=== PATIENT | female | born 1940 | race Caucasian/White ===

== ENCOUNTER 2020-09-09 08:16 | Day surgery (SDC) | payer MEDICARE ==
--- NOTE | 2020-09-03 10:13 | HP ---
DATE OF SURGERY: 09/09/2020 HISTORY OF PRESENT ILLNESS: The patient presented to the office with complaints of a right nipple inversion. She had AVS and MMK procedure before. It is not sure if her last mammogram was okay but she reports that it was okay. Her nipple is symptomatic and she wishes to have something done about it. PAST MEDICAL HISTORY: Diabetes. Hypertension. Gastroesophageal reflux disease. PAST SURGICAL HISTORY: AVS. MMK. ALLERGIES: NKDA. MEDICATIONS: Metformin. Lisinopril. Latanoprost. FAMILY HISTORY: Cancer unspecified type. Diabetes. SOCIAL HISTORY: None. REVIEW OF SYSTEMS: CONSTITUTIONAL: Denies fever or chills. CHEST: Denies shortness of breath. CVS: Denies chest pain. ABDOMEN: Denies abdominal pain, nausea, vomiting, diarrhea, constipation or rectal bleeding. INTEGUMENTARY: Negative. PHYSICAL EXAMINATION: GENERAL: No acute distress. CHEST: Nonlabored. No shortness of breath. CVS: Regular rate and rhythm. ABDOMEN: Soft, nontender to palpation. EXTREMITIES: No edema. NEUROLOGIC: Alert. PSYCHIATRIC: Appropriate. IMPRESSION: Right nipple inversion. PLAN: Right nipple exploration with Dr. Helio Paulson. As dictated by Kalpana Truong NP.
[~2020-09-09 08:16] MED LIST: DIPRIVAN 200 MG/20 ML IV ONE; Decadron 4 MG INJ ONE; Lactated Ringers 1,000 ML IV ONE; SUBLIMAZE 100 MCG/2 ML ONE; Sensorcaine 0.25% 10 ML ONE; Xylocaine-Mpf 2% 5 Ml Vial ONE; Zofran 4 MG/2 ML VIAL ONE
[2020-09-09] MEDS: Lactated Ringers 1,000 ML IV SCH ×2 (08:52→09:25)
[2020-09-09] MEDS ORDERED: CEFAZOLIN 2 GM-D5W BAG** 2 GM/50 ML ML IV SCH (09:00)
[2020-09-09] MEDS ORDERED: CEFAZOLIN 2 GM-D5W BAG** 2 GM/50 ML ML IV ONE (09:23)
[2020-09-09] MEDS ORDERED: SUBLIMAZE 100 MCG/2 ML ONE (12:07)
[2020-09-09 13:20] VITALS: BP 153/85; PULSE 69; O2SAT 93
--- NOTE | 2020-09-10 12:00 | OP ---
SURGERY DATE/TIME: 09/09/2020 1108 PREOPERATIVE DIAGNOSIS: Acutely inverted right nipple. POSTOPERATIVE DIAGNOSIS: Acutely inverted right nipple. PROCEDURE: Excision of retro-areolar breast tissue right nipple and areola. SURGEON: Helio Paulson M.D. ANESTHESIA: General. COMPLICATIONS: None. CONDITION: Stable. INDICATION: An 79 year old who has a normal left nipple and in the last six weeks has developed a dimpled right nipple. There is no absolute mass. On mammogram there was not anything absolute but it is a very new change and is quite concerning. DESCRIPTION OF PROCEDURE: She was taken to surgery. Marked preoperatively. Routine prep and drape. Incision was marked on the right areola located between the 7:00 and 11:00, this was elevated upwards and retro-areolar tissue was taken. It was slightly thickened and inflamed acting for a lady of this age but I did not think that it was absolutely malignant. The nipple was able to be buttressed with 3-0 Vicryl leaving this in the protruded normal position. The areola was reapproximated with 3-0 Vicryl, 4-0 Vicryl and Steri-Strips. The patient tolerated the procedure satisfactorily.
== END 2020-09-09 13:30 | disposition home or self-care (01) ==
LOC: SDC 08:16
PROVIDERS: ATTEND Surgery
DX: C50.911 Malignant neoplasm of unspecified site of right female breast (principal); E11.9 Type 2 diabetes mellitus without complications; I10 Essential (primary) hypertension; K21.9 Gastro-esophageal reflux disease without esophagitis; Z79.899 Other long term (current) drug therapy
CPT/HCPCS: 82962; 88341; 99100; J0690; J1100; J2405; J2704; J3010

== ENCOUNTER 2021-11-28 11:15 | Day surgery (SDC) | payer MEDICARE ==
[~2021-11-28 11:15] MED LIST changes: -DIPRIVAN 200 MG/20 ML IV ONE; -Decadron 4 MG INJ ONE; -Lactated Ringers 1,000 ML IV ONE; -SUBLIMAZE 100 MCG/2 ML ONE; -Sensorcaine 0.25% 10 ML ONE; +XYLOCAINE 1% HCL 20 ML MDV ONE; -Xylocaine-Mpf 2% 5 Ml Vial ONE; -Zofran 4 MG/2 ML VIAL ONE
[2021-11-28] MEDS ORDERED: Lactated Ringers 1,000 ML IV SCH (11:30)
[2021-11-28] MEDS ORDERED: Versed 2 MG/2 ML Injection ONE (15:14)
[2021-11-28] MEDS ORDERED: SUBLIMAZE 100 MCG/2 ML ONE (15:14)
[2021-11-28] MEDS ORDERED: DIPRIVAN 200 MG/20 ML IV ONE (15:14)
[2021-11-28 17:03] VITALS: BP 160/90; PULSE 78; O2SAT 96
--- NOTE | 2021-12-05 15:11 | OP ---
SURGERY DATE/TIME: 11/28/2021 1513 PREOPERATIVE DIAGNOSIS: Undesired port, treatment is complete. POSTOPERATIVE DIAGNOSIS: Undesired port, treatment is complete. PROCEDURE: Port removal. SURGEON: Leandra Paulson M.D. ANESTHESIA: MAC. COMPLICATIONS: None. ESTIMATED BLOOD LOSS: Minimal. SPECIMENS: None. INDICATION: This is a patient who has had breast cancer. She has completed her treatment. She does not need her port anymore. She would like for this to be removed. Risks, benefits, alternatives have been discussed with her in detail. She understands, agrees and wants to proceed. Her H&P and consent were reviewed with her and completed. DESCRIPTION OF PROCEDURE: She was then brought to the OR suite. Anesthesia was induced. She was prepped and draped in the usual sterile fashion. A complete time out performed. I then made an incision immediately over her port scar. The port was carefully dissected free. The stitches were removed completely. Pressure was held. The port was fully removed, checked. Catheter was intact. We held pressure for two minutes. Upon releasing pressure there was no back bleeding. I placed a figure-of-8 Vicryl at the tunnel site. We irrigated. Closed with buried 3-0 Vicryl, running 4-0 subcuticular Monocryl stitch, Steri-Strips and sterile dressing. The patient tolerated the procedure very well. There were no immediate complications. She is going to be following up with me as an outpatient.
== END 2021-11-28 17:05 | disposition home or self-care (01) ==
LOC: SDC 11:15
PROVIDERS: ATTEND Surgery
DX: Z45.2 Encounter for adjustment and management of vascular access device (principal); Z85.3 Personal history of malignant neoplasm of breast; E11.9 Type 2 diabetes mellitus without complications; I10 Essential (primary) hypertension; Z79.899 Other long term (current) drug therapy
CPT/HCPCS: 82947; 82962; 99100; J2250; J2704; J3010

== ENCOUNTER 2023-07-09 10:05 | Emergency (ER) | payer MEDICARE ==
--- NOTE | 2023-07-09 10:15 | ERPHSYRPT ---
- History of Present Illness Time Seen by Provider: 07/09/23 10:15 Source: patient Exam Limitations: no limitations Physician History: This is an 82-year-old white female patient of Dr. Gillis who has a history of hypertension, diabetes, glaucoma and gastroesophageal reflux disease and noticed in the last few days her mind seemed cloudy and off. She took her blood pres sure several different times over the weekend and there were times where it was very high. She was seen in the outpatient clinic and they increased her lisinopril. Despite this change in the last couple of days, her blood pressure was high and she had an odd headache. She felt a brief left cheek numbness but that completely resolved prior to arrival. She arrived to the emergency department with no vision changes, no chest pain, no shortness of breath but she did have a systolic blood pressure in the 170s. The second systolic blood pressure was 158. She had called her primary care doctor's office and they told her to come to the emergency department. She is a former smoker of cigarettes. Timing/Duration: today Severity: mild Associated Symptoms: headaches, No shortness of breath, No chest pain Allergies/Adverse Reactions: No Known Drug Allergies Allergy (Verified 11/28/21 12:03) Home Medications: Latanoprost/Pf [Latanoprost 0.005% Eye Drop] 7.5 ml OP HS 08/30/20 [History] Lisinopril 10 mg [Zestril 10 MG] 20 mg PO DAILY 08/30/20 [History] Metformin HCl 500 mg [Glucophage 500 MG] 500 mg PO BIDWM 08/30/20 [History] Acetaminophen [Tylenol Arthritis] 2 tab PO DAILY PRN 09/09/20 [History] Anastrozole 1 mg PO DAILY 11/25/21 [History] Aspirin [Aspirin EC] 81 mg PO DAILY 11/25/21 [History] Cholecalciferol (Vitamin D3) [Vitamin D3] 1 tab PO DAILY 11/28/21 [History] Lisinopril/Hydrochlorothiazide [Lisinopril-Hctz 20-12.5 mg Tab] 1 each PO DAILY 07/09/23 [History] Hx Tetanus, Diphtheria Vaccination/Date Given: No Hx Influenza Vaccination/Date Given: Yes (2009) Hx Pneumococcal Vaccination/Date Given: No Travel Risk - International Travel Have you traveled outside of the country in past 3 weeks: No - Coronavirus Screening Are you exhibiting any of the following symptoms?: No Close contact with a COVID-19 positive Pt in past 14-21 Days: No - Review of Systems Constitutional: No Symptoms Eyes: No Symptoms Ears, Nose, & Throat: No Symptoms Respiratory: No Symptoms Cardiac: No Symptoms Abdominal/Gastrointestinal: No Symptoms Genitourinary Symptoms: No Symptoms Musculoskeletal: No Symptoms Skin: No Symptoms Neurological: Headache Psychological: No Symptoms Endocrine: No Symptoms Hematologic/Lymphatic: No Symptoms Immunological/Allergic: No Symptoms All Other Systems: Reviewed and Negative - Past Medical History Pertinent Past Medical History: Yes Neurological History: No Pertinent History ENT History: Glaucoma Cardiac History: Hypertension Respiratory History: No Pertinent History Endocrine Medical History: No Pertinent History, Diabetes Type II Musculoskeletal History: Arthritis GI Medical History: GERD, Hernia History: No Pertinent History Psycho-Social History: No Pertinent History Female Reproductive Disorders: Other Other Medical History: borderline diabetic, pt c/o inverted nipple for 10 months.breast cancer chemo,radiation,mastectomy - Past Surgical History Past Surgical History: Yes Neuro Surgical History: Other Cardiac: No Pertinent History, Cardiac Catheterization Respiratory: No Pertinent History Gastrointestinal: Appendectomy, Hernia Repair Genitourinary: Kidney Surgery Musculoskeletal: No Pertinent History Female Surgical History: Hysterectomy, Tubal Ligation, Mastectomy Other Surgical History: Back, 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 Benign tissue mass left lateral chest - Social History Smoking Status: Former smoker Exposure to second hand smoke: No Drug Use: none - Nursing Vital Signs Nursing Vital Signs: Initial Vital Signs Temperature 96.8 F 07/09/23 10:10 Pulse Rate 88 07/09/23 10:10 Respiratory Rate 20 07/09/23 10:10 Blood Pressure 179/86 07/09/23 10:10 O2 Sat by Pulse Oximetry 96 07/09/23 10:10 Pain Scale Pain Intensity 0 - Physical Exam General Appearance: no apparent distress, alert, anxiety Eye Exam: PERRL/EOMI, eyes nml inspection Ears, Nose, Throat Exam: normal ENT inspection, moist mucous membranes Neck Exam: normal inspection, non-tender, supple, full range of motion Respiratory Exam: normal breath sounds, lungs clear, airway intact, No chest tenderness, No respiratory distress Cardiovascular Exam: regular rate/rhythm, normal heart sounds, normal peripheral pulses Gastrointestinal/Abdomen Exam: soft, normal bowel sounds, No tenderness Pelvic Exam: not done Rectal Exam: not done Back Exam: normal inspection, normal range of motion, No CVA tenderness, No vert ebral tenderness Extremity Exam: normal inspection, normal range of motion, pelvis stable Neurologic Exam: alert, oriented x 3, cooperative, cyber security systems engineer II-XII nml as tested, normal mood/affect, nml cerebellar function, nml station & gait, sensation nml Skin Exam: normal color, warm, dry Lymphatic Exam: No adenopathy SpO2 Interpretation: normal O2 Delivery: Room Air - Course Nursing assessment & vital signs reviewed: Yes EKG Interpreted by Me: RATE (70), Sinus Rhythm, LAFB, NORMAL INTERVALS, NORMAL QRS, Other (No acute ischemic changes on today's twelve-lead EKG) Ordered Tests: Active Orders 24 hr Category Date Time Status EKG-ER Only STAT Care 07/09/23 10:23 Active IV Insertion STAT Care 07/09/23 10:23 Active Pulse Oximetry (ED) STAT Care 07/09/23 10:23 Active HEAD WITHOUT CONTRAST [CT] Stat Exams 07/09/23 10:23 Completed CBC W DIFF Stat Lab 07/09/23 10:30 Completed CMP Stat Lab 07/09/23 10:30 Completed CULTURE,URINE Stat Lab 07/09/23 11:28 Received MAGNESIUM Stat Lab 07/09/23 10:30 Completed NT PRO BNPII Stat Lab 07/09/23 10:30 Completed TROPONIN Q4H Lab 07/09/23 10:30 Completed TROPONIN Q4H Lab 07/09/23 14:30 Ordered TROPONIN Q4H Lab 07/09/23 18:30 Ordered UA W/RFX UR CULTURE Stat Lab 07/09/23 11:28 Completed Medication Summary Generic Name Dose Route Start Last Admin Trade Name Freq PRN Reason Stop Dose Admin Ceftriaxone Sodium/Dextrose 1 g in 50 mls @ 100 mls/hr 07/09/23 12:13 Rocephin 1 Gm-D5w 50 Ml Bag IV 07/09/23 12:42 STAT STA Lab/Rad Data: Laboratory Result Diagrams 07/09/23 10:30 07/09/23 10:30 Laboratory Results 07/09/23 07/09/23 07/09/23 Range/Units 11:28 10:30 10:30 WBC (4.0-10.5) x10^3/uL RBC (4.1-5.4) x10^6/uL Hgb (12.0-16.0) g/dL Hct (35-47) % MCV (78-100) fL MCH (26-32) pg MCHC (32-36) g/dL RDW (11.5-14.0) % Plt Count (150-450) x10^3/uL MPV (7.5-11.0) fL Gran % (36.0-66.0) % Immature Gran % (Auto) (0.00-0.4) % Nucleat RBC Rel Count (0.00-0.1) % Eos # (Auto) (0-0.5) x10^3/uL Immature Gran # (Auto) (0.00-0.03) x10^3u/L Absolute Lymphs (auto) (1.0-4.6) x10^3/uL Absolute Monos (auto) (0.0-1.3) x10^3/uL Absolute Nucleated RBC (0.00-0.01) x10^3u/L Lymphocytes % (24.0-44.0) % Monocytes % (0.0-12.0) % Eosinophils % (0.00-5.0) % Basophils % (0.0-0.4) % Absolute Granulocytes (1.4-6.9) x10^3/uL Basophils # (0-0.4) x10^3/uL Sodium 140 (137-145) mmol/L Potassium 4.9 (3.5-5.1) mmol/L Chloride 103 (98-107) mmol/L Carbon Dioxide 26 (22-30) mmol/L Anion Gap 15.5 H (5-15) MEQ/L BUN 29 H (7-17) mg/dL Creatinine 1.64 H (0.52-1.04) mg/dL Estimated GFR 31.8 ML/MIN Glucose 160 H (74-106) mg/dL Calcium 9.8 (8.4-10.2) mg/dL Magnesium 2.0 (1.6-2.3) mg/dL Total Bilirubin 0.50 (0.2-1.3) mg/dL AST 24 (14-36) U/L ALT 19 (0-35) U/L Alkaline Phosphatase 79 (38-126) U/L Troponin I < 0.012 (0.000-0.034) ng/mL NT-Pro-B Natriuret Pep 722 (<300) pg/mL Serum Total Protein 6.8 (6.3-8.2) g/dL Albumin 4.1 (3.5-5.0) g/dL Urine Color Yellow (Yellow) Urine Appearance Cloudy A (Clear) Urine pH 5.5 (4.6-8.0) Ur Specific [place] 1.025 (1.005-1.030) Urine Protein Trace A (Negative) Urine Glucose (UA) Negative (Negative) mg/dL Urine Ketones Trace A (Negative) Urine Blood Negative (Negative) Urine Nitrite Negative (Negative) Urine Bilirubin Negative (Negative) Urine Urobilinogen 0.2 (0.2) mg/dL Ur Leukocyte Esterase Large A (Negative) U Hyaline Cast (Auto) 3-5 A (0-2) /LPF Urine Microscopic RBC 0-2 (0-5) /HPF Urine Microscopic WBC >100 A (0-5) /HPF Ur Epithelial Cells Few (None Seen) /HPF Urine Bacteria Many A (None Seen) /HPF Urine Culture Reflexed YES (NO) 07/09/23 Range/Units 10:30 WBC 7.1 (4.0-10.5) x10^3/uL RBC 3.54 L (4.1-5.4) x10^6/uL Hgb 12.0 (12.0-16.0) g/dL Hct 37.5 (35-47) % MCV 105.9 H (78-100) fL MCH 33.9 H (26-32) pg MCHC 32.0 (32-36) g/dL RDW 12.6 (11.5-14.0) % Plt Count 332 (150-450) x10^3/uL MPV 9.7 (7.5-11.0) fL Gran % 58.6 (36.0-66.0) % Immature Gran % (Auto) 0.1 (0.00-0.4) % Nucleat RBC Rel Count 0.0 (0.00-0.1) % Eos # (Auto) 0.15 (0-0.5) x10^3/uL Immature Gran # (Auto) 0.01 (0.00-0.03) x10^3u/L Absolute Lymphs (auto) 2.12 (1.0-4.6) x10^3/uL Absolute Monos (auto) 0.59 (0.0-1.3) x10^3/uL Absolute Nucleated RBC 0.00 (0.00-0.01) x10^3u/L Lymphocytes % 29.8 (24.0-44.0) % Monocytes % 8.3 (0.0-12.0) % Eosinophils % 2.1 (0.00-5.0) % Basophils % 1.1 (0.0-0.4) % Absolute Granulocytes 4.16 (1.4-6.9) x10^3/uL Basophils # 0.08 (0-0.4) x10^3/uL Sodium (137-145) mmol/L Potassium (3.5-5.1) mmol/L Chloride (98-107) mmol/L Carbon Dioxide (22-30) mmol/L Anion Gap (5-15) MEQ/L BUN (7-17) mg/dL Creatinine (0.52-1.04) mg/dL Estimated GFR ML/MIN Glucose (74-106) mg/dL Calcium (8.4-10.2) mg/dL Magnesium (1.6-2.3) mg/dL Total Bilirubin (0.2-1.3) mg/dL AST (14-36) U/L ALT (0-35) U/L Alkaline Phosphatase (38-126) U/L Troponin I (0.000-0.034) ng/mL NT-Pro-B Natriuret Pep (<300) pg/mL Serum Total Protein (6.3-8.2) g/dL Albumin (3.5-5.0) g/dL Urine Color (Yellow) Urine Appearance (Clear) Urine pH (4.6-8.0) Ur Specific [place] (1.005-1.030) Urine Protein (Negative) Urine Glucose (UA) (Negative) mg/dL Urine Ketones (Negative) Urine Blood (Negative) Urine Nitrite (Negative) Urine Bilirubin (Negative) Urine Urobilinogen (0.2) mg/dL Ur Leukocyte Esterase (Negative) U Hyaline Cast (Auto) (0-2) /LPF Urine Microscopic RBC (0-5) /HPF Urine Microscopic WBC (0-5) /HPF Ur Epithelial Cells (None Seen) /HPF Urine Bacteria (None Seen) /HPF Urine Culture Reflexed (NO) - Progress Progress: improved, re-examined Progress Note: 07/09/23 12:18 CT scan of the head without contrast was interpreted by the radiologist and I reviewed the impression. There is no evidence of any acute intracranial abnormality. This patient's medical issue is 1 of moderate complexity. Level complexity in the work-up performed based on review of the patient's past medical history and review of the patient's medication list, review of the patient's drug allergy list, history present illness and physical findings on examination. Work-up in this patient includes CT scan of the head, intravenous line, twelve-lead EKG, CBC, CMP, troponin level, urinalysis,. The review of the work-up shows the patient has a significant urinary tract infection. We will provide her with intravenous Rocephin 1 g followed by an outpatient prescription being remotely sent to her pharmacy for Levaquin 500 mg orally once a day for 7 days. Counseled pt/family regarding: lab results, diagnosis, need for follow-up, rad results Medical Desision Making - Independent Historian Additional History obtained from: Family - Diagnostic Testing Diagnostic test were ordered, analyzed, and reviewed by me: Yes Radiological Interpretation: Reviewed by me, Teleradiologist Report - Risk of complications The pt has a mod risk of morbidity or mortality based on: Need for prescription drug management - Departure Departure Disposition: Home Clinical Impression: Hypertension, Dizziness, UTI (urinary tract infection) Condition: Stable Critical Care Time: No Referrals: LEONA GILLIS MD [Primary Care Provider] - Follow up/PCP as directed Additional Instructions: Plenty of fluids. Take your antibiotics as prescribed. Monitor your blood pressure morning noon and night and keep a daily log over the next 2 to 3 days. Call your primary care provider today to make arrangements for follow-up appointment for further evaluation management. Prescriptions: Levofloxacin [Levaquin 500 MG Tablet] 500 mg PO DAILY #7 tablet
[2023-07-09 10:18] VITALS: TEMP 96.8
[2023-07-09 10:39] LABS: Absolute Neutrophil Ct (ANC) 4.16 x10^3/uL (1.4-6.9); BASOPHIL % 1.1 % (0.0-0.4); Basophil (Absolute #) 0.08 x10^3/uL (0-0.4); Eosinophil % 2.1 % (0.00-5.0); Eosinophil (Absolute #) 0.15 x10^3/uL (0-0.5); Hematocrit 37.5 % (35-47); IMMATURE GRAN # 0.01 x10^3u/L (0.00-0.03); IMMATURE GRAN % 0.1 % (0.00-0.4); Lymphocyte (Absolute #) 2.12 x10^3/uL (1.0-4.6); Lymphocytes % 29.8 % (24.0-44.0); Mean Cell Volume 105.9 fL (78-100); Mean Corpuscular Hemoglobin 33.9 pg (26-32); Mean Platelet Volume 9.7 fL (7.5-11.0); Monocyte (Absolute #) 0.59 x10^3/uL (0.0-1.3); Monocytes % 8.3 % (0.0-12.0); Neutrophil % 58.6 % (36.0-66.0); Platelet Count 332 x10^3/uL (150-450); Red Blood Count 3.54 x10^6/uL (4.1-5.4); Red Cell Distribution Width 12.6 % (11.5-14.0); White Blood Count 7.1 x10^3/uL (4.0-10.5)
[2023-07-09 11:04] LABS: ALBUMIN 4.1 g/dL (3.5-5.0); ANION GAP 15.5 MEQ/L (5-15); BILIRUBIN,TOTAL 0.5 mg/dL (0.2-1.3); Calcium 9.8 mg/dL (8.4-10.2); Creatinine 1 1.64 mg/dL (0.52-1.04); EST GLOMERULAR FILTRATION RATE 31.8 ML/MIN; Potassium 4.9 mmol/L (3.5-5.1); Total Protein 6.8 g/dL (6.3-8.2)
--- NOTE | 2023-07-09 11:11 | XRAY ---
Indication: Headache. Hypertension. Multiple contiguous axial images obtained through the head without contrast. Comparison: None Normal appearing brain parenchyma and ventricles for patient's age. Bony calvarium intact with incidental hyperostosis frontalis interna. Visualized paranasal sinuses and mastoid air cells are clear. Impression: Normal CT head without contrast exam.
[2023-07-09 11:30] VITALS: RESP 18; O2SAT 96
[2023-07-09 11:44] LABS: Appearance Cloudy (Clear); Bacteria Many /HPF (None Seen); Bilirubin Negative (Negative); Blood Negative (Negative); Epithelial Cells Few /HPF (None Seen); Glucose, Urine Negative (Negative); Ketones Trace (Negative); Leukocyte Esterase Large (Negative); Nitrite Negative (Negative); Ph 5.5 (4.6-8.0); Protein,Urine Dip Trace (Negative); RBC 0-2 /HPF (0-5); Specific Gravity 1.025 (1.005-1.030); Urobilinogen 0.2 mg/dL (0.2); WBC >100 /HPF (0-5)
[2023-07-09 11:54] LABS: ADD URINE CULTURE? YES (NO)
[2023-07-09] MEDS ORDERED: ROCEPHIN 1 Gm-D5w 50 ml Bag** 1 G/50 ML IVPB IV STA (12:13)
[2023-07-09 12:15] VITALS: BP 155/91; PULSE 68
[2023-07-09] MEDS ORDERED: ROCEPHIN 1 Gm-D5w 50 ml Bag** 1 G/50 ML IVPB IV ONE (12:20)
== END 2023-07-09 13:01 | disposition home or self-care (01) ==
LOC: ED 10:05
DX: N39.0 Urinary tract infection, site not specified (principal); I10 Essential (primary) hypertension; R42 Dizziness and giddiness; E11.9 Type 2 diabetes mellitus without complications; Z79.84 Long term (current) use of oral hypoglycemic drugs; Z79.899 Other long term (current) drug therapy
CPT/HCPCS: 36000; 36415; 70450; 80053; 81001; 83735; 83880; 84484; 85025; 87086; 93005; 94760; 96365; 99284; J0696

== ENCOUNTER 2024-06-24 13:59 | Emergency (ER) | payer MEDICARE ==
[2024-06-24 14:20] VITALS: TEMP 98.5
--- NOTE | 2024-06-24 14:43 | ERPHSYRPT ---
- History of Present Illness Time Seen by Provider: 06/24/24 14:28 Source: patient, family ([id number]) Exam Limitations: no limitations Patient Subjective Stated Complaint: Pt fell face first on a linoleum floor injuring her nose and left knee Triage Nursing Assessment: Pt brought to the ER by her daughter in law, hypertensive, rates pain as 7/10, nose is swollen and has a active bleeding, pt does have a spot on her nose that bleeds often and never heals but has not had it looked at by her PCP, pt thinks that her left knee gave out and was wearing a knee brace but still managed to cause deep bruising on her knee cap, pt denies LOC or hitting her head in any other place but her nose, pt denies any other injuries Physician History: Pt states about 1 hour ago her left knee gave out(has happened before) and fell forward on her face with resultant left sided facial pain/swelling, nose swelling and laceration with bleeding, bilateral hand bruising and left knee bruising; denies nausea, chest pain, back pain, abdominal pain. Allergies/Adverse Reactions: No Known Drug Allergies Allergy (Verified 06/24/24 14:20) Home Medications: Latanoprost/Pf [Latanoprost 0.005% Eye Drop] 7.5 ml OP HS 08/30/20 [History] Metformin HCl 500 mg [Glucophage 500 MG] 500 mg PO BIDWM 08/30/20 [History] Acetaminophen [Tylenol Arthritis] 2 tab PO DAILY PRN 09/09/20 [History] Anastrozole 1 mg PO DAILY 11/25/21 [History] Cholecalciferol (Vitamin D3) [Vitamin D3] 1 tab PO DAILY 11/28/21 [History] Lisinopril/Hydrochlorothiazide [Lisinopril-Hctz 20-12.5 mg Tab] 1 each PO DAILY 07/09/23 [History] Hx Tetanus, Diphtheria Vaccination/Date Given: No Hx Influenza Vaccination/Date Given: Yes (2009) Hx Pneumococcal Vaccination/Date Given: No Travel Risk - International Travel Have you traveled outside of the country in past 3 weeks: No - Emerging Infectious Disease Are you exhibiting symptoms associated with any current EIDs: No - Review of Systems Cardiac: No Chest Pain Abdominal/Gastrointestinal: No Abdominal Pain, No Nausea Musculoskeletal: No Back Pain Skin: Other (multiple bruising) Neurological: No Headache - Past Medical History Pertinent Past Medical History: Yes Neurological History: No Pertinent History ENT History: Glaucoma Cardiac History: Hypertension Respiratory History: No Pertinent History Endocrine Medical History: No Pertinent History, Diabetes Type II Musculoskeletal History: Arthritis GI Medical History: GERD, Hernia History: No Pertinent History Psycho-Social History: No Pertinent History Female Reproductive Disorders: Other Other Medical History: borderline diabetic, pt c/o inverted nipple for 10 months.breast cancer chemo,radiation,mastectomy - Past Surgical History Past Surgical History: Yes Neuro Surgical History: Other Cardiac: No Pertinent History, Cardiac Catheterization Respiratory: No Pertinent History Gastrointestinal: Appendectomy, Hernia Repair Genitourinary: Kidney Surgery Musculoskeletal: No Pertinent History Female Surgical History: Hysterectomy, Tubal Ligation, Mastectomy Other Surgical History: Back, 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 Benign tissue mass left lateral chest - Social History Smoking Status: Former smoker Exposure to second hand smoke: No Drug Use: none Patient Lives Alone: No - Social Determinants of Health Will the patient participate in the screening: Yes Do you worry about a steady place to live?: No Do you have any problems with any of the following?: No known problems In the past 12 months,have you had to go without utilities?: No Transportation Issues: No Has anyone in your support network made you feel unsafe?: No Have you or anyone in your house had to go without enough: No - Nursing Vital Signs Nursing Vital Signs: Initial Vital Signs Temperature 98.5 F 06/24/24 14:08 Pulse Rate 86 06/24/24 14:08 Blood Pressure 175/95 06/24/24 14:08 O2 Sat by Pulse Oximetry 98 06/24/24 14:08 Pain Scale Pain Intensity 4 - [place] Coma Score Best Eye Response ([place]): (4) open spontaneously Best Verbal Response ([place]): (5) oriented Best Motor Response ([place]): (6) obeys commands [place] Total: 15 - Physical Exam General Appearance: alert Head Injury: swelling (mild edema of nose and left facial cheek with mild tenderness and ~ 1 cm laceration on nose) Eye Exam: PERRL/EOMI ENT Exam: airway nml, hearing grossly normal Neck Exam: trachea midline Respiratory/Chest Exam: normal breath sounds, No chest tenderness Cardiovascular Exam: normal heart sounds Gastrointestinal Exam: soft, normal bowel sounds, No tenderness Back Exam: No vertebral tenderness Extremity Exam: normal range of motion, other (mild tenderness and bruising on hands and left knee) Neurologic Exam: alert, cooperative SpO2 Interpretation: normal SpO2: 98 O2 Delivery: Room Air - Course Nursing assessment & vital signs reviewed: Yes - Radiology Exams Right Hand X-ray Interpretation: Discussed w/ radiologist, No Fracture (See report.) Left Hand X-ray Interpretation: Discussed w/ radiologist, No Fracture (See report.) Left Knee X-ray Interpretation: Discussed w/ radiologist, No Fracture (See report.) - CT Exams Head CT Interpretation: Discussed w/radiologist (Normal) Maxillofacial Bones CT Interpretation: Discussed w/radiologist (Minimally depressed left nasal bone fracture. See rest of report.) Cervical Spine CT Interpretation: Discussed w/radiologist, No Fracture Ordered Tests: Active Orders 24 hr Category Date Time Status CERVICAL SPINE WO CONTRAST [CT] Stat Exams 06/24/24 14:46 Completed FACIAL BONES WO CONTRAST [CT] Stat Exams 06/24/24 14:46 Completed HAND (MINIMUM 3 VIEWS) Stat Exams 06/24/24 14:47 Completed HAND (MINIMUM 3 VIEWS) Stat Exams 06/24/24 14:48 Completed HEAD WITHOUT CONTRAST [CT] Stat Exams 06/24/24 14:46 Completed KNEE (3 VIEWS) Stat Exams 06/24/24 14:47 Completed Medication Summary Generic Name Dose Route Start Last Admin Trade Name Freq PRN Reason Stop Dose Admin Ceftriaxone Sodium 1,000 mg 06/24/24 17:04 Ceftriaxone Sodium 1000 Mg Inj Vial IM 06/24/24 17:05 STAT ONE Discontinued Medications Generic Name Dose Route Start Last Admin Trade Name Freq PRN Reason Stop Dose Admin Hydrocodone Bitart/Acetaminophen 2 tab 06/24/24 14:48 06/24/24 15:28 Hydrocodone/Apap 5/325 1 Tab Tablet PO 06/24/24 14:49 2 tab STAT ONE Administration Hydrocodone Bitart/Acetaminophen Confirm 06/24/24 15:14 Hydrocodone/Apap 5/325 1 Tab Tablet Administered 06/24/24 15:15 Dose 2 tab .ROUTE .STK-MED ONE - Progress Progress: improved Counseled pt/family regarding: diagnosis, need for follow-up, rad results Medical Desision Making - Diagnostic Testing Diagnostic test were ordered, analyzed, and reviewed by me: Yes Radiological Interpretation: Discussed w/ radiologist - Departure Departure Disposition: Home Clinical Impression: Fall, nasal laceration/contusion, Left nasal bone fracture, Multiple contusions Condition: Stable Critical Care Time: No Referrals: LEONA GILLIS MD [Primary Care Provider] - Follow up/PCP as directed Instructions: Preventing falls in adults, Nose Fracture ED Additional Instructions: Follow up with private doctor tomorrow. Follow up with ENT doctor tomorrow(Call [phone] tomorrow morning for an appointment at the [facility] for ENT & allergy, [address] [place] [address] 3rd floor). Prescriptions: Cefpodoxime Proxetil 200 mg [Vantin 200 mg] 200 mg PO BID #20 tablet
[2024-06-24] MEDS ORDERED: NORCO 5/325 MG ONE (15:14)
[2024-06-24] MEDS: NORCO 5/325 MG PO ONE (15:28)
--- NOTE | 2024-06-24 15:29 | XRAY ---
Indication: Status post fall. Multiple contiguous axial images obtained through the head without contrast. Comparison: July 09, 2022 Normal-appearing brain parenchyma, ventricles, and bony calvarium for patient's age. Again incidental hyperostosis frontalis interna. CT facial bones report septally. Impression: Continued normal CT head without contrast exam.
--- NOTE | 2024-06-24 15:31 | XRAY ---
Indication: Status post fall. Nasal laceration. Multiple contiguous axial images obtained through the facial bones appear sagittal and coronal reformatted images obtained. Comparison: None Osseous structures demineralized. Minimal depressed left nasal bone fracture with overlying soft tissue swelling. No other acute fracture, suspicious bony lesions, or radiopaque foreign body. Orbits including roof, berg, and floors intact. Paranasal sinuses and nasal passages are clear. Mild nasal septal deviation to the left. Patient is edentulous. TMJ bilaterally symmetric with mild degenerative changes. Visualized noncontrasted soft tissues are unremarkable. CT head and CT cervical spine reported separately. Impression: 1. Minimally depressed left nasal bone fracture. 2. Chronic findings including osteopenia, nasal septal deviation, and bilateral TMJ degenerative changes.
--- NOTE | 2024-06-24 15:35 | XRAY ---
Indication: Status post fall. Multiple contiguous axial images obtained through the cervical spine. Sagittal and coronal reformatted images obtained. Comparison: None Osseous structures demineralized. No acute fracture, suspicious bony lesions, or spinal canal stenosis. Minimal/mild C4-T1 degenerative endplate spurring greatest at C5-C6. Also mild/moderate multilevel bilateral degenerative facet hypertrophy. Sagittal and coronal reformatted images demonstrates normal cervical lordosis with minimal 1-2 mm anterolisthesis C4 on C5 on C6 on C7. C5-C7 disc space loss greatest at C5-C6. No acute fracture or jumped facet. Normal-appearing craniocervical junction. Visualized noncontrasted soft tissues demonstrates moderate bilateral carotid calcifications. Also biapical pleural parenchymal fibrosis/scarring right greater than left. Impression: Chronic findings including osteopenia, multilevel degenerative spondylosis, grade 1 listhesis C4-C7, carotid calcifications, and biapical pleural parenchymal fibrosis/scarring. No acute findings.
--- NOTE | 2024-06-24 16:36 | XRAY ---
Indication: Pain following fall. Comparison: June 05, 2022 3 view left knee again demonstrates osteopenia, mild/moderate tricompartmental degenerative changes again greatest medial compartment, and moderate scattered vascular calcifications. No new/acute abnormalities.
--- NOTE | 2024-06-24 16:37 | XRAY ---
Indication: Pain following fall. Comparison: None 3 view left hand demonstrates osteopenia, mild/moderate degenerative changes all IP/MCP joints greatest 2nd DIP, and moderate 1st metacarpal multangular scaphoid degenerative changes. No other bony, articular, or soft tissue abnormalities.
--- NOTE | 2024-06-24 16:37 | XRAY ---
Indication: Pain following fall. Comparison: None 3 view right hand demonstrates osteopenia, mild/moderate degenerative changes all IP/MCP joints greatest 2nd DIP, and moderate/advanced 1st metacarpal multangular scaphoid degenerative changes. No other bony, articular, or soft tissue abnormalities.
[2024-06-24] MEDS ORDERED: XYLOCAINE 1% HCL 20 ML MDV ONE (17:18)
[2024-06-24] MEDS ORDERED: Rocephin 1000 MG INJ ONE (17:18)
[2024-06-24] MEDS: Rocephin 1000 MG INJ IM ONE (17:23)
[2024-06-24] MEDS ORDERED: TENIVAC VIAL IM ONE (17:28)
[2024-06-24 17:36] VITALS: BP 200/87; PULSE 73; RESP 18; O2SAT 96
[2024-06-24] MEDS: TENIVAC VIAL IM ONE (17:38)
== END 2024-06-24 18:19 | disposition home or self-care (01) ==
LOC: ED 13:59
DX: S01.21XA Laceration without foreign body of nose, initial encounter (principal); S02.2XXA Fracture of nasal bones, initial encounter for closed fracture; S60.222A Contusion of left hand, initial encounter; S60.221A Contusion of right hand, initial encounter; S80.02XA Contusion of left knee, initial encounter; W18.39XA Other fall on same level, initial encounter; I10 Essential (primary) hypertension; E11.9 Type 2 diabetes mellitus without complications; Z79.84 Long term (current) use of oral hypoglycemic drugs; Z79.899 Other long term (current) drug therapy; Z23 Encounter for immunization
CPT/HCPCS: 70450; 70486; 72125; 73130; 73562; 90471; 90714; 96372; 99284; J0696; A9270-GY

== ENCOUNTER 2024-11-04 15:44 | Observation (INO) | payer MEDICARE ==
--- NOTE | 2024-11-04 17:14 | ERPHSYRPT ---
- History of Present Illness Time Seen by Provider: 11/04/24 17:00 Source: patient Exam Limitations: no limitations Patient Subjective Stated Complaint: hypertension with dizziness Triage Nursing Assessment: Pt brought to the ER by her daughter in law, hypertensive, denies pain, pulses normal, skin n/w/d, no difficulty breathing, no chest pain, doesn't appear to be in any distress Physician History: 84-year-old female presents to emergency department for evaluation of hypertension, dizziness and facial paresthesias started today. Patient reports difficulty controlling her blood pressure. Patient has been taking her combination of lisinopril hydrochlorothiazide medications variably based on her blood pressure reading at home. No associated chest pain or shortness of breath. No nausea vomiting or diaphoresis. Symptoms are mild to moderate in intensity. No specific worsening improving factors. Patient currently asymptomatic. Systolic blood pressure 180. [id number] at bedside. They voiced no other complaints or concerns at this time. Portions of this note were created with voice recognition technology. There may be grammatical, spelling, punctuation or sound alike errors Timing/Duration: today Severity: moderate Modifying Factors: Improves With: nothing Associated Symptoms: denies symptoms Allergies/Adverse Reactions: No Known Drug Allergies Allergy (Verified 11/04/24 17:04) Home Medications: Metformin HCl 500 mg [Glucophage 500 MG] 500 mg PO BIDWM 08/30/20 [History] Acetaminophen [Tylenol Arthritis] 2 tab PO DAILY PRN 09/09/20 [History] Anastrozole 1 mg PO DAILY 11/25/21 [History] Cholecalciferol (Vitamin D3) [Vitamin D3] 1 tab PO DAILY 11/28/21 [History] Lisinopril/Hydrochlorothiazide [Lisinopril-Hctz 20-12.5 mg Tab] 1 each PO DAILY 07/09/23 [History] Hx Tetanus, Diphtheria Vaccination/Date Given: No Hx Influenza Vaccination/Date Given: Yes (2009) Hx Pneumococcal Vaccination/Date Given: No Travel Risk - International Travel Have you traveled outside of the country in past 3 weeks: No - Emerging Infectious Disease Are you exhibiting symptoms associated with any current EIDs: No - Review of Systems Constitutional: No Symptoms, No Fever, No Chills Eyes: No Symptoms Ears, Nose, & Throat: No Symptoms Respiratory: No Symptoms, No Cough, No Dyspnea Cardiac: No Symptoms, No Chest Pain, No Edema, No Syncope Abdominal/Gastrointestinal: No Symptoms, No Abdominal Pain, No Nausea, No Vomiting, No Diarrhea Genitourinary Symptoms: No Symptoms, No Dysuria Musculoskeletal: No Symptoms, No Back Pain, No Neck Pain Skin: No Symptoms, No Rash Neurological: No Symptoms, No Dizziness, No Focal Weakness, No Sensory Changes Psychological: No Symptoms Endocrine: No Symptoms Hematologic/Lymphatic: No Symptoms Immunological/Allergic: No Symptoms All Other Systems: Reviewed and Negative - Past Medical History Pertinent Past Medical History: Yes Neurological History: No Pertinent History ENT History: Glaucoma Cardiac History: Hypertension Respiratory History: No Pertinent History Endocrine Medical History: No Pertinent History, Diabetes Type II Musculoskeletal History: Arthritis GI Medical History: GERD, Hernia History: No Pertinent History Psycho-Social History: No Pertinent History Female Reproductive Disorders: Other Other Medical History: borderline diabetic, pt c/o inverted nipple for 10 months.breast cancer chemo,radiation,mastectomy - Past Surgical History Past Surgical History: Yes Neuro Surgical History: Other Cardiac: No Pertinent History, Cardiac Catheterization Respiratory: No Pertinent History Gastrointestinal: Appendectomy, Hernia Repair Genitourinary: Kidney Surgery Musculoskeletal: No Pertinent History Female Surgical History: Hysterectomy, Tubal Ligation, Mastectomy Other Surgical History: Back, 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 Benign tissue mass left lateral chest - Social History Smoking Status: Former smoker Exposure to second hand smoke: No Drug Use: none Patient Lives Alone: No - Social Determinants of Health Will the patient participate in the screening: Yes Do you worry about a steady place to live?: No Do you have any problems with any of the following?: No known problems In the past 12 months,have you had to go without utilities?: No Transportation Issues: No Has anyone in your support network made you feel unsafe?: No Have you or anyone in your house had to go without enough: No - Nursing Vital Signs Nursing Vital Signs: Initial Vital Signs Temperature 97.9 F 11/04/24 16:44 Pulse Rate 81 11/04/24 16:44 Respiratory Rate 16 11/04/24 16:44 Blood Pressure 180/85 11/04/24 16:44 O2 Sat by Pulse Oximetry 98 11/04/24 16:44 Pain Scale Pain Intensity 3 - Physical Exam General Appearance: no apparent distress, alert Eye Exam: PERRL/EOMI, eyes nml inspection Ears, Nose, Throat Exam: normal ENT inspection, TMs normal, pharynx normal, moist mucous membranes Neck Exam: normal inspection, non-tender, supple, full range of motion Respiratory Exam: normal breath sounds, lungs clear, airway intact, No respiratory distress Cardiovascular Exam: regular rate/rhythm, normal heart sounds, normal peripheral pulses Gastrointestinal/Abdomen Exam: soft, normal bowel sounds, No tenderness, No mass Back Exam: normal inspection, normal range of motion, No CVA tenderness, No vertebral tenderness Extremity Exam: normal inspection, normal range of motion, pelvis stable Neurologic Exam: alert, oriented x 3, cooperative, normal mood/affect, nml cerebellar function, nml station & gait, sensation nml, No motor deficits Skin Exam: normal color, warm, dry, No rash Lymphatic Exam: No adenopathy SpO2 Interpretation: normal SpO2: 98 O2 Delivery: Room Air - Course Nursing assessment & vital signs reviewed: Yes EKG Interpreted by Me: RATE (74), Sinus Rhythm, NORMAL AXIS, NORMAL INTERVALS, NORMAL QRS - CT Exams Head CT Interpretation: Tele-radiologist Report (No acute intracranial process) Ordered Tests: Active Orders 24 hr Category Date Time Status Mooner STAT Care 11/04/24 17:12 Active EKG-ER Only STAT Care 11/04/24 17:12 Active IV Insertion STAT Care 11/04/24 17:12 Active Pulse Oximetry (ED) STAT Care 11/04/24 17:12 Active HEAD WITHOUT CONTRAST [CT] Stat Exams 11/04/24 17:13 Taken CBC W DIFF Stat Lab 11/04/24 17:30 Completed CMP Stat Lab 11/04/24 17:30 Completed NT PRO BNPII Stat Lab 11/04/24 17:30 Completed TROPONIN Q4H Lab 11/04/24 17:30 Completed TROPONIN Q4H Lab 11/04/24 21:15 Ordered TROPONIN Q4H Lab 11/05/24 01:15 Ordered Transfer Order Routine Transfer 11/04/24 Ordered Medication Summary Generic Name Dose Route Start Last Admin Trade Name Freq PRN Reason Stop Dose Admin Sodium Chloride 1,000 mls @ 50 mls/hr 11/04/24 17:15 11/04/24 17:37 Sodium Chloride 0.9% 1000 Ml IV 12/04/24 17:14 50 mls/hr .Q20H BRAYDEN Administration Discontinued Medications Generic Name Dose Route Start Last Admin Trade Name Kishor PRN Reason Stop Dose Admin Clopidogrel Bisulfate 300 mg 11/04/24 19:58 Clopidogrel Bisulfate 75 Mg Tablet PO 11/04/24 19:59 STAT ONE Labetalol HCl 10 mg 11/04/24 19:39 11/04/24 19:49 Labetalol Hcl 20 Mg/4 Ml Disp.Syringe IV 11/04/24 19:40 10 mg STAT ONE Administration Labetalol HCl Confirm 11/04/24 19:43 Labetalol Hcl 20 Mg/4 Ml Disp.Syringe Administered 11/04/24 19:44 Dose 20 mg IV .Mashups ONE Lab/Rad Data: Laboratory Result Diagrams 11/04/24 17:30 11/04/24 17:30 Laboratory Results 11/04/24 11/04/24 11/04/24 Range/Units 17:30 17:30 17:30 WBC 7.9 (3.98-10.04) x10^3/uL RBC 3.62 L (3.93-5.22) x10^6/uL Hgb 12.2 (11.2-15.7) g/dL Hct 37.1 (34.1-44.9) % MCV 102.5 H (79.4-94.8) fL MCH 33.7 H (25.6-32.2) pg MCHC 32.9 (32.2-35.5) g/dL RDW 13.4 (11.7-14.4) % Plt Count 372 H (182-369) x10^3/uL MPV 9.4 (9.4-12.3) fL Gran % 57.5 (34.0-71.1) % Immature Gran % (Auto) 0.4 (0.001-0.429) % Nucleat RBC Rel Count 0.0 (0.00-0.2) % Eos # (Auto) 0.18 (0.04-0.36) x10^3/uL Immature Gran # (Auto) 0.03 (0.001-0.031) x10^3u/L Absolute Lymphs (auto) 2.03 (1.18-3.74) x10^3/uL Absolute Monos (auto) 1.01 H (0.24-0.86) x10^3/uL Absolute Nucleated RBC 0.00 (0.00-0.012) x10^3u/L Lymphocytes % 25.7 (19.3-51.7) % Monocytes % 12.8 H (4.7-12.5) % Eosinophils % 2.3 (0.7-5.8) % Basophils % 1.3 H (0.1-1.2) % Absolute Granulocytes 4.56 (1.56-6.13) x10^3/uL Basophils # 0.10 H (0.01-0.08) x10^3/uL Sodium 136 (135-145) mmol/L Potassium 4.6 (3.5-5.1) mmol/L Chloride 101 (98-107) mmol/L Carbon Dioxide 26 (22-30) mmol/L Anion Gap 13.6 (5-15) MEQ/L BUN 25 H (7-17) mg/dL Creatinine 1.40 H (0.52-1.04) mg/dL Estimated GFR 36.9 ML/MIN Glucose 123 H (74-106) mg/dL Calcium 10.0 (8.4-10.2) mg/dL Total Bilirubin 0.40 (0.2-1.3) mg/dL AST 26 (14-36) U/L ALT 18 (0-35) U/L Alkaline Phosphatase 68 (38-126) U/L Troponin I < 0.012 (0.000-0.033) ng/mL NT-Pro-B Natriuret Pep 1000 (<300) pg/mL Serum Total Protein 7.2 (6.3-8.2) g/dL Albumin 4.3 (3.5-5.0) g/dL - Progress Progress: improved Progress Note: 84-year-old female presents to our ED for evaluation of dizziness hypertension and facial paresthesia. CT head negative for acute intracranial pathology. Laboratory workup essentially nonremarkable. Creatinine elevated however this appears to be within her baseline. Teleneurologist evaluated patient. He advises hospitalization. Teleneurologist also request 300 mg Plavix as well as labetalol. Both administered. I spoke to neurologist at 7:56 PM. Patient accepted by hospitalist at 7:52 PM. Plan of care discussed with patient. She agrees to admission at [facility] for further evaluation and treatment. Portions of this note were created with voice recognition technology. There may be grammatical, spelling, punctuation or sound alike errors Complexity of problem addressed is moderate acute complicated no critical care time complex of data reviewed and analyzed is extensive. Test ordered test reviewed results analyzed and correlated clinically. Management discussed with hospitalist and teleneurologist. Risk of complication and or risk of morbidity/mortality of patient management is high. Patient requires hospitalization for further evaluation and treatment. Vital stable. Time spent to admit patient approximately 20 minutes. Plan of care established for shared decision making. No social determinants of health present to impede follow-up. Patient's repeat neuroexam remains within normal limits. No focal or lateralizing symptomology Portions of this note were created with voice recognition technology. There may be grammatical, spelling, punctuation or sound alike errors 11/04/24 19:59 Counseled pt/family regarding: lab results, diagnosis, rad results - Departure Departure Disposition: Observation Clinical Impression: Dizziness, Hypertension, Facial paresthesia Condition: Stable Critical Care Time: No Referrals: LEONA GILLIS MD [Primary Care Provider] - Follow up/PCP as directed
[2024-11-04] MEDS ORDERED: Sodium Chloride 0.9% 1000 ML 1,000 ML ONE (17:36)
[2024-11-04] MEDS: Sodium Chloride 0.9% 1000 ML 1,000 ML IV SCH (17:37)
[2024-11-04 17:40] LABS: Absolute Neutrophil Ct (ANC) 4.56 x10^3/uL (1.56-6.13); BASOPHIL % 1.3 % (0.1-1.2); Eosinophil % 2.3 % (0.7-5.8); Eosinophil (Absolute #) 0.18 x10^3/uL (0.04-0.36); Hematocrit 37.1 % (34.1-44.9); Hemoglobin 12.2 g/dL (11.2-15.7); IMMATURE GRAN # 0.03 x10^3u/L (0.001-0.031); IMMATURE GRAN % 0.4 % (0.001-0.429); Lymphocyte (Absolute #) 2.03 x10^3/uL (1.18-3.74); Lymphocytes % 25.7 % (19.3-51.7); Mean Cell Volume 102.5 fL (79.4-94.8); Mean Corpuscular Hemoglobin 33.7 pg (25.6-32.2); Mean Corpuscular Hgb Concent. 32.9 g/dL (32.2-35.5); Mean Platelet Volume 9.4 fL (9.4-12.3); Monocyte (Absolute #) 1.01 x10^3/uL (0.24-0.86); Monocytes % 12.8 % (4.7-12.5); Neutrophil % 57.5 % (34.0-71.1); Platelet Count 372 x10^3/uL (182-369); Red Blood Count 3.62 x10^6/uL (3.93-5.22); Red Cell Distribution Width 13.4 % (11.7-14.4); White Blood Count 7.9 x10^3/uL (3.98-10.04)
[2024-11-04 17:57] LABS: ALBUMIN 4.3 g/dL (3.5-5.0); ANION GAP 13.6 MEQ/L (5-15); BILIRUBIN,TOTAL 0.4 mg/dL (0.2-1.3); Creatinine 1 1.4 mg/dL (0.52-1.04); EST GLOMERULAR FILTRATION RATE 36.9 ML/MIN; Potassium 4.6 mmol/L (3.5-5.1); Total Protein 7.2 g/dL (6.3-8.2)
[2024-11-04 18:13] LABS: NT PRO BNPII 1000 pg/mL (<300); TROPONIN < 0.012 ng/mL (0.000-0.033)
[2024-11-04] MEDS ORDERED: TRANDATE 20 MG/4 ML SYRINGE IV ONE (19:43)
[2024-11-04] MEDS: TRANDATE 20 MG/4 ML SYRINGE IV ONE (19:49)
[2024-11-04] MEDS: PLAVIX Tablet PO ONE (20:15)
[2024-11-04] MEDS ORDERED: PLAVIX Tablet ONE (20:15)
--- NOTE | 2024-11-04 21:34 | PCM.HP ---
History of Present Illness - Chief Complaint Chief Complaint: HYPERTENSION, PARETHESIA, DIZZINESS Date: 11/04/24 History of Present Illness: 84 years old very pleasant lady with past medical history significant for diabetes mellitus, hypertension, history of breast and bladder cancer currently in remission who lives with quite independent in her daily life came to ER for evaluation of high blood pressure. Patient told me she takes her blood pressure medicine regularly and usually it runs around 1 30-1 40. Today she felt extreme dizzy with some tingling on left side of the face and when he checked her blood pressure it was running 202/99. She denies having any weakness numbness. No nausea vomiting headache. No other symptoms reported. In the ER initial pressure was 180/85 she was afebrile pulse of 81. As well as blood workup concern all came out unremarkable except hide sugar 372. Troponin 0.01 to NT-proBNP 1000. CT head was completely unremarkable. Teleneurologist evaluated patient advised hospitalization and giving Plavix 300 mg loading dose. She is admitted for MRI and to rule out stroke - Review of Systems All Other Systems: Reviewed and Negative (14 systems reviewed ) Medications & Allergies Home Medications: Home Medication List Metformin HCl 500 mg [Glucophage 500 MG] 500 mg PO BIDWM 08/30/20 [History Confirmed 11/04/24] Acetaminophen [Tylenol Arthritis] 2 tab PO DAILY PRN 09/09/20 [History Confirmed 11/04/24] Anastrozole 1 mg PO DAILY 11/25/21 [History Confirmed 11/04/24] Cholecalciferol (Vitamin D3) [Vitamin D3] 1 tab PO DAILY 11/28/21 [History Confirmed 11/04/24] Lisinopril/Hydrochlorothiazide [Lisinopril-Hctz 20-12.5 mg Tab] 1 each PO DAILY 07/09/23 [History Confirmed 11/04/24] Brimonidine Tartrate 5 ml OP BID 11/04/24 [History Confirmed 11/04/24] Latanoprostene Bunod [Vyzulta] 5 ml OP HS 11/04/24 [History Confirmed 11/04/24] Allergies/Adverse Reactions: Allergies Allergy/AdvReac Type Severity Reaction Status Date / Time No Known Drug Allergies Allergy Verified 11/04/24 17:04 - Past Medical History Past Medical History: Yes Neurological History: No Pertinent History ENT History: Glaucoma Cardiac History: Hypertension Respiratory History: No Pertinent History Endocrine Medical History: No Pertinent History, Diabetes Type II Musculoskelatal History: Arthritis GI Medical History: GERD, Hernia History: No Pertinent History Pyscho-Social History: No Pertinent History Reproductive Disorders: Other Comment: borderline diabetic, pt c/o inverted nipple for 10 months.breast cancer chemo,radiation,mastectomy - Past Surgical History Past Surgical History: Yes Neuro Surgical History: Other Cardiac History: No Pertinent History, Cardiac Catheterization Respiratory Surgery: No Pertinent History GI Surgical History: Appendectomy, Hernia Repair Genitourinary Surgical Hx: Kidney Surgery Musculskeletal Surgical Hx: No Pertinent History Female Surgical History: Hysterectomy, Tubal Ligation, Mastectomy Other Surgical History: Back, 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 Benign tissue mass left lateral chest Significant Family History: no pertinent family hx - Social History Smoking Status: Never smoker Exposure to second hand smoke: No Alcohol: None Drug Use: none - Social Determinants of Health Will the patient participate in the screening: Yes Do you worry about a steady place to live?: No Do you have any problems with any of the following?: No known problems In the past 12 months,have you had to go without utilities?: No Have you or anyone in your house had to go without enough: No Transportation Issues: No Has anyone in your support network made you feel unsafe?: No Does the patient want assistance with any of the above?: No - Physical Exam Vital Signs: Vital Signs - 24 hr Temp Pulse Resp BP BP BP Pulse Ox 11/04/24 21:19 97.1 F 71 18 176/88 97 11/04/24 20:04 98 11/04/24 20:01 89 16 170/125 96 11/04/24 19:40 198/114 11/04/24 19:31 84 27 H 246/157 97 11/04/24 19:00 92 H 30 H 192/108 97 11/04/24 18:30 83 19 198/132 95 11/04/24 18:04 95 H 19 239/127 96 11/04/24 18:02 82 21 215/122 99 11/04/24 17:30 32 H 199/112 96 11/04/24 17:22 98 11/04/24 17:01 189/97 11/04/24 16:44 97.9 F 81 16 180/85 98 Additional Findings: 11/04/24 21:34 HEENT Very old aged, average built in no distress NECK Supple,no thyromegaly, CVS S1+S2 + 0, no murmers RESP Bilateral equal air entry without Crepts/Wheezes heard GIT Soft non tender,non distended Skin, No rah, no Bruises LEGS No Edema PSYCH Normal,mood, judgement and insight NEURO AOX3, no focal deficit Results - Labs Lab/Micro Results: Lab Results-Last 24 Hours 11/04/24 11/04/24 11/04/24 Range/Units 17:30 17:30 17:30 WBC 7.9 (3.98-10.04) x10^3/uL RBC 3.62 L (3.93-5.22) x10^6/uL Hgb 12.2 (11.2-15.7) g/dL Hct 37.1 (34.1-44.9) % MCV 102.5 H (79.4-94.8) fL MCH 33.7 H (25.6-32.2) pg MCHC 32.9 (32.2-35.5) g/dL RDW 13.4 (11.7-14.4) % Plt Count 372 H (182-369) x10^3/uL MPV 9.4 (9.4-12.3) fL Gran % 57.5 (34.0-71.1) % Immature Gran % (Auto) 0.4 (0.001-0.429) % Nucleat RBC Rel Count 0.0 (0.00-0.2) % Eos # (Auto) 0.18 (0.04-0.36) x10^3/uL Immature Gran # (Auto) 0.03 (0.001-0.031) x10^3u/L Absolute Lymphs (auto) 2.03 (1.18-3.74) x10^3/uL Absolute Monos (auto) 1.01 H (0.24-0.86) x10^3/uL Absolute Nucleated RBC 0.00 (0.00-0.012) x10^3u/L Lymphocytes % 25.7 (19.3-51.7) % Monocytes % 12.8 H (4.7-12.5) % Eosinophils % 2.3 (0.7-5.8) % Basophils % 1.3 H (0.1-1.2) % Absolute Granulocytes 4.56 (1.56-6.13) x10^3/uL Basophils # 0.10 H (0.01-0.08) x10^3/uL Sodium 136 (135-145) mmol/L Potassium 4.6 (3.5-5.1) mmol/L Chloride 101 (98-107) mmol/L Carbon Dioxide 26 (22-30) mmol/L Anion Gap 13.6 (5-15) MEQ/L BUN 25 H (7-17) mg/dL Creatinine 1.40 H (0.52-1.04) mg/dL Estimated GFR 36.9 ML/MIN Glucose 123 H (74-106) mg/dL Calcium 10.0 (8.4-10.2) mg/dL Total Bilirubin 0.40 (0.2-1.3) mg/dL AST 26 (14-36) U/L ALT 18 (0-35) U/L Alkaline Phosphatase 68 (38-126) U/L Troponin I < 0.012 (0.000-0.033) ng/mL NT-Pro-B Natriuret Pep 1000 (<300) pg/mL Serum Total Protein 7.2 (6.3-8.2) g/dL Albumin 4.3 (3.5-5.0) g/dL - Radiology Impressions Radiology Exams & Impressions: Radiology Procedures Category Date Time Status HEAD WITHOUT CONTRAST [CT] Stat Exams 11/04/24 17:13 Taken Assessment/Plan (1) Hypertension Current Visit: Yes Status: Acute Code(s): I10 - ESSENTIAL (PRIMARY) HYPERTENSION (2) Facial paresthesia Current Visit: Yes Status: Acute Code(s): R20.2 - PARESTHESIA OF SKIN (3) Dizziness Current Visit: Yes Status: Acute Code(s): R42 - DIZZINESS AND GIDDINESS Telemedicine Encounter - Telemedicine Encounter Telemedicine Encounter: The entirety of this encounter was performed via Telemedicin This visit was performed using real-time audio and video connection between my location and thepatients locationwith the assistance of a surrogateat the patients location. Written or verbal consent was obtained from the patient/guardian to perform this visit [email or web address] technology. Any patient questions regarding the telemedicine interaction were answered. Acute strokelike symptom Patient admitted with extreme dizziness and tingling on her left face that went away on its own CT head in ER remained unremarkable Teleneurologist advised MRI to rule out stroke Patient received loading dose of Plavix Permissive hypertension for now Hypertensive emergency Admitted with dizziness, systolic blood pressure 202/99 at home In ER blood pressure was 185,Received 1 stat dose of labetalol in ER Will hold further antihypertensives until ruled out for stroke by MRI in the morning Patient told me she is compliant with her lisinopril/HCTZat home otherwise Chronic kidney disease stage IIIb Creatinine seems at baseline 1.4 Keep avoiding nephrotoxins Type 2 diabetes mellitus insulin-dependent will check HbA1c Continue sliding for medium dose Target blood sugar should be less than 180 Keep holding metformin for now History of breast cancer Status post double Mastectomy chemo and radiation, Patient is currently in remission for 2 years History of bladder cancer Status post surgery Currently in remission DVT prophylaxis SCD/Lovenox CODE STATUS full as per medication with patient Discharge planning pending clinical stability I have reviewed patient lab vitals and imaging, all questions and concerns were addressed.
[2024-11-04] MEDS ORDERED: HUMALOG SQ PRN (21:36)
[2024-11-05] MEDS: BRIMONIDINE TARTRATE OP SCH (01:15)
[2024-11-05] MEDS: LATANOPROSTENE BUNOD OP SCH (01:16)
[2024-11-05 01:21] LABS: Hemoglobin 11.4 g/dL (11.2-15.7); Mean Cell Volume 102.3 fL (79.4-94.8); Mean Corpuscular Hemoglobin 33.3 pg (25.6-32.2); Mean Corpuscular Hgb Concent. 32.6 g/dL (32.2-35.5); Mean Platelet Volume 9.7 fL (9.4-12.3); Platelet Count 366 x10^3/uL (182-369); Red Blood Count 3.42 x10^6/uL (3.93-5.22); Red Cell Distribution Width 13.5 % (11.7-14.4)
[2024-11-05 01:33] LABS: Creatinine 1 1.24 mg/dL (0.52-1.04); EST GLOMERULAR FILTRATION RATE 42.7 ML/MIN
[2024-11-05 01:35] LABS: Potassium 4.6 mmol/L (3.5-5.1)
[2024-11-05 01:41] LABS: ANION GAP 12.6 MEQ/L (5-15)
[2024-11-05] MEDS ORDERED: MEDICATION INTERVENTION MC SCH ×6 (07:15→16:15)
--- NOTE | 2024-11-05 08:38 | XRAY ---
Indication: Dizziness. High blood pressure. Stroke. Multiple contiguous axial images obtained through the head without contrast. Comparison: June 24, 2024 Normal appearing brain parenchyma, ventricles, and bony calvarium for patient's age. Minimal fluid leveling left maxillary sinus. Remaining visualized paranasal sinuses and mastoid air cells are clear. Impression: Left maxillary sinus disease. Remaining CT head without contrast exam normal.
[2024-11-05] MEDS ORDERED: ANASTROZOLE 1 MG PO SCH (10:00)
[2024-11-05] MEDS: ENOXAPARIN SODIUM SQ SCH (12:00)
--- NOTE | 2024-11-05 14:20 | XRAY ---
Indication: Stroke. Sagittal, coronal, and axial MRI brain performed using T1, T2, FLAIR, diffusion, and ADC sequences. Comparison: October 20, 2015 Again age-appropriate global atrophy with minimal periventricular degenerative micro-ischemia bilaterally. No acute intracranial hemorrhage, abnormal extra-axial fluid collection, or mass effect. Diffusion images are negative for restricted signal. Fourth ventricle is midline without hydrocephalus. 7/8 cranial nerve complex bilaterally symmetric. Normal flow void signal within the major intracerebral circulation. Normal appearing craniocervical junction and sella turcica. Tiny fluid leveling left maxillary sinus. Impression: Again atrophy and degenerative micro-ischemia within normal limits. Incidental left maxillary sinus disease. Remaining MRI brain without contrast exam continues to be negative.
--- NOTE | 2024-11-05 14:21 | PCM.DS ---
Discharge Summary Date of Admission: 11/04/24 20:43 Date of Discharge: 11/05/24 Admitting Physician: TAO RIOS MD Primary Care Provider: LEONA GILLIS Allergies Allergies No Known Drug Allergies Allergy (Verified 11/04/24 17:04) Hospital Summary - Hospital Course Hospital Course: 11/05/24 84 years old very pleasant lady with past medical history significant for diabetes mellitus, hypertension, history of breast and bladder cancer currently in remission who lives with quite independent in her daily life. She came to ER for evaluation of high blood pressure. Patient told me she takes her blood pressure medicine regularly and usually it runs around 130-1 40. Today she felt extreme dizzy with some tingling on left side of the face and when he checked her blood pressure it was running 202/99. She denies having any weakness numbness. No nausea vomiting headache. No other symptoms reported. In the ER initial pressure was 180/85 she was afebrile pulse of 81. As well as blood workup concern all came out unremarkable except hide sugar 372. Troponin 0.01 to NT-proBNP 1000. CT head was completely unremarkable. Teleneurologist evaluated patient advised hospitalization and giving Plavix 300 mg loading dose. She is admitted for MRI and to rule out stroke. Today she reports no sxs. She is up and walking around in the room. BP is at baseline. She states she feels some weakness but walking around the room fine. PT to eval. She may d/c this evening if MRI negative. She feels her BP may have been r/t anxiety. - Vitals & Intake/Output Vital Signs: Vital Signs Temperature 97.9 F 11/05/24 12:00 Pulse Rate 83 11/05/24 12:00 Respiratory Rate 16 11/05/24 12:00 Blood Pressure 115/61 11/05/24 12:00 O2 Sat by Pulse Oximetry 96 11/05/24 12:00 Intake & Output: Intake & Output 11/03/24 11/04/24 11/05/24 11/06/24 11:59 11:59 11:59 11:59 Intake Total 680 480 Balance 680 480 Weight 65.4 kg - Lab Result Diagrams: 11/05/24 01:05 11/05/24 01:05 Lab Results-Last 24 Hrs: Lab Results-Last 24 Hours 12/11/04/24 11/04/24 Range/Units 17:30 17:30 17:30 WBC 7.9 (3.98-10.04) x10^3/uL RBC 3.62 L (3.93-5.22) x10^6/uL Hgb 12.2 (11.2-15.7) g/dL Hct 37.1 (34.1-44.9) % MCV 102.5 H (79.4-94.8) fL MCH 33.7 H (25.6-32.2) pg MCHC 32.9 (32.2-35.5) g/dL RDW 13.4 (11.7-14.4) % Plt Count 372 H (182-369) x10^3/uL MPV 9.4 (9.4-12.3) fL Gran % 57.5 (34.0-71.1) % Immature Gran % (Auto) 0.4 (0.001-0.429) % Nucleat RBC Rel Count 0.0 (0.00-0.2) % Eos # (Auto) 0.18 (0.04-0.36) x10^3/uL Immature Gran # (Auto) 0.03 (0.001-0.031) x10^3u/L Absolute Lymphs (auto) 2.03 (1.18-3.74) x10^3/uL Absolute Monos (auto) 1.01 H (0.24-0.86) x10^3/uL Absolute Nucleated RBC 0.00 (0.00-0.012) x10^3u/L Lymphocytes % 25.7 (19.3-51.7) % Monocytes % 12.8 H (4.7-12.5) % Eosinophils % 2.3 (0.7-5.8) % Basophils % 1.3 H (0.1-1.2) % Absolute Granulocytes 4.56 (1.56-6.13) x10^3/uL Basophils # 0.10 H (0.01-0.08) x10^3/uL Sodium 136 (135-145) mmol/L Potassium 4.6 (3.5-5.1) mmol/L Chloride 101 (98-107) mmol/L Carbon Dioxide 26 (22-30) mmol/L Anion Gap 13.6 (5-15) MEQ/L BUN 25 H (7-17) mg/dL Creatinine 1.40 H (0.52-1.04) mg/dL Estimated GFR 36.9 ML/MIN Glucose 123 H (74-106) mg/dL Calcium 10.0 (8.4-10.2) mg/dL Total Bilirubin 0.40 (0.2-1.3) mg/dL AST 26 (14-36) U/L ALT 18 (0-35) U/L Alkaline Phosphatase 68 (38-126) U/L Troponin I < 0.012 (0.000-0.033) ng/mL NT-Pro-B Natriuret Pep 1000 (<300) pg/mL Serum Total Protein 7.2 (6.3-8.2) g/dL Albumin 4.3 (3.5-5.0) g/dL 11/04/24 11/05/24 11/05/24 Range/Units 21:25 01:00 01:05 WBC 8.0 (3.98-10.04) x10^3/uL RBC 3.42 L (3.93-5.22) x10^6/uL Hgb 11.4 (11.2-15.7) g/dL Hct 35.0 (34.1-44.9) % MCV 102.3 H (79.4-94.8) fL MCH 33.3 H (25.6-32.2) pg MCHC 32.6 (32.2-35.5) g/dL RDW 13.5 (11.7-14.4) % Plt Count 366 (182-369) x10^3/uL MPV 9.7 (9.4-12.3) fL Gran % (34.0-71.1) % Immature Gran % (Auto) (0.001-0.429) % Nucleat RBC Rel Count (0.00-0.2) % Eos # (Auto) (0.04-0.36) x10^3/uL Immature Gran # (Auto) (0.001-0.031) x10^3u/L Absolute Lymphs (auto) (1.18-3.74) x10^3/uL Absolute Monos (auto) (0.24-0.86) x10^3/uL Absolute Nucleated RBC (0.00-0.012) x10^3u/L Lymphocytes % (19.3-51.7) % Monocytes % (4.7-12.5) % Eosinophils % (0.7-5.8) % Basophils % (0.1-1.2) % Absolute Granulocytes (1.56-6.13) x10^3/uL Basophils # (0.01-0.08) x10^3/uL Sodium (135-145) mmol/L Potassium (3.5-5.1) mmol/L Chloride (98-107) mmol/L Carbon Dioxide (22-30) mmol/L Anion Gap (5-15) MEQ/L BUN (7-17) mg/dL Creatinine (0.52-1.04) mg/dL Estimated GFR ML/MIN Glucose (74-106) mg/dL Calcium (8.4-10.2) mg/dL Total Bilirubin (0.2-1.3) mg/dL AST (14-36) U/L ALT (0-35) U/L Alkaline Phosphatase (38-126) U/L Troponin I 0.015 0.014 (0.000-0.033) ng/mL NT-Pro-B Natriuret Pep (<300) pg/mL Serum Total Protein (6.3-8.2) g/dL Albumin (3.5-5.0) g/dL 11/05/24 Range/Units 01:05 WBC (3.98-10.04) x10^3/uL RBC (3.93-5.22) x10^6/uL Hgb (11.2-15.7) g/dL Hct (34.1-44.9) % MCV (79.4-94.8) fL MCH (25.6-32.2) pg MCHC (32.2-35.5) g/dL RDW (11.7-14.4) % Plt Count (182-369) x10^3/uL MPV (9.4-12.3) fL Gran % (34.0-71.1) % Immature Gran % (Auto) (0.001-0.429) % Nucleat RBC Rel Count (0.00-0.2) % Eos # (Auto) (0.04-0.36) x10^3/uL Immature Gran # (Auto) (0.001-0.031) x10^3u/L Absolute Lymphs (auto) (1.18-3.74) x10^3/uL Absolute Monos (auto) (0.24-0.86) x10^3/uL Absolute Nucleated RBC (0.00-0.012) x10^3u/L Lymphocytes % (19.3-51.7) % Monocytes % (4.7-12.5) % Eosinophils % (0.7-5.8) % Basophils % (0.1-1.2) % Absolute Granulocytes (1.56-6.13) x10^3/uL Basophils # (0.01-0.08) x10^3/uL Sodium 136 (135-145) mmol/L Potassium 4.6 (3.5-5.1) mmol/L Chloride 104 (98-107) mmol/L Carbon Dioxide 24 (22-30) mmol/L Anion Gap 12.6 (5-15) MEQ/L BUN 22 H (7-17) mg/dL Creatinine 1.24 H (0.52-1.04) mg/dL Estimated GFR 42.7 ML/MIN Glucose 135 H (74-106) mg/dL Calcium 10.0 (8.4-10.2) mg/dL Total Bilirubin (0.2-1.3) mg/dL AST (14-36) U/L ALT (0-35) U/L Alkaline Phosphatase (38-126) U/L Troponin I (0.000-0.033) ng/mL NT-Pro-B Natriuret Pep (<300) pg/mL Serum Total Protein (6.3-8.2) g/dL Albumin (3.5-5.0) g/dL - Radiology Exams Ordered Rad Exams-Entire Visit: Radiology Procedures Category Date Time Status HEAD WITHOUT CONTRAST [CT] Stat Exams 11/04/24 17:13 Completed MRI BRAIN W/O CONTRAST [MRI] Routine Exams 11/05/24 10:23 Taken - Procedures and Test Procedures and Tests throughout Hospitalization: Therapy Orders & Screens 11/05/24 09:43 PT Eval & Treat ( Order) ONCE Reason for Eval:: weakness Diagnosis: HYPERTENSION, PARETHESIA, DIZZINESS Discharge Exam General Appearance: no apparent distress, alert Neurologic Exam: alert, oriented x 3, cooperative, 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, normal mood/affect, nml cerebellar function, sensation nml, No motor deficits Eye Exam: PERRL, EOMI, eyes nml inspection Ears, Nose, Throat Exam: normal ENT inspection, pharynx normal, moist mucous membranes Neck Exam: normal inspection, non-tender, supple, full range of motion Respiratory Exam: normal breath sounds, lungs clear, No respiratory distress Cardiovascular Exam: regular rate/rhythm, normal heart sounds Gastrointestinal/Abdomen Exam: soft, No tenderness, No mass Pelvic Exam: deferred Rectal Exam: deferred Back Exam: normal inspection, normal range of motion, No CVA tenderness, No vertebral tenderness Extremity Exam: normal inspection, normal range of motion Skin Exam: normal color, warm, dry Final Diagnosis/Problem List - Final Discharge Diagnosis/Problem (1) Dizziness Current Visit: Yes Status: Resolved Assessment & Plan: - resolved - CT head negative - MRI pending Code(s): R42 - DIZZINESS AND GIDDINESS (2) Facial paresthesia Current Visit: Yes Status: Resolved Assessment & Plan: - resolved- see above plan of care Code(s): R20.2 - PARESTHESIA OF SKIN (3) Hypertension Current Visit: Yes Status: Chronic Assessment & Plan: - BP stable - Continue home meds Code(s): I10 - ESSENTIAL (PRIMARY) HYPERTENSION - Discharge Discharge Date: 11/05/24 Disposition: Home, Self-Care Condition: Stable Prescriptions: Continue Metformin HCl 500 mg [Glucophage 500 MG] 500 mg PO BIDWM Acetaminophen [Tylenol Arthritis] 2 tab PO DAILY PRN PRN Reason: Pain Anastrozole 1 mg PO DAILY Cholecalciferol (Vitamin D3) [Vitamin D3] 1 tab PO DAILY Lisinopril/Hydrochlorothiazide [Lisinopril-Hctz 20-12.5 mg Tab] 1 each PO DAILY Brimonidine Tartrate 1 drop OP BID Latanoprostene Bunod [Vyzulta] 1 drop OP HS Follow up with: LEONA GILLIS MD [Primary Care Provider] - 11/17/24 3:15 pm
[2024-11-05] MEDS ORDERED: NON-FORMULARY ITEM (Acetaminophen [Tylenol Arthritis] 650 MG Tablet.Er) PO PRN (15:52)
--- NOTE | 2024-11-05 16:14 | PCM.NOTE ---
Date and Time: 11/05/24 160 Subjective Assessment: 11/05/24 84 years old very pleasant lady with past medical history significant for diabetes mellitus, hypertension, history of breast and bladder cancer currently in remission who lives with quite independent in her daily life. She came to ER for evaluation of high blood pressure. Patient told me she takes her blood pressure medicine regularly and usually it runs around 130-1 40. Today she felt extreme dizzy with some tingling on left side of the face and when he checked her blood pressure it was running 202/99. She denies having any weakness numbness. No nausea vomiting headache. No other symptoms reported. In the ER initial pressure was 180/85 she was afebrile pulse of 81. As well as blood workup concern all came out unremarkable except hide sugar 372. Troponin 0.01 to NT-proBNP 1000. CT head was completely unremarkable. Teleneurologist evaluated patient advised hospitalization and giving Plavix 300 mg loading dose. She is admitted for MRI and to rule out stroke. Today she reports no sxs. She is up and walking around in the room. BP is at baseline. She states she feels some weakness but walking around the room fine. PT to eval. MRI negative. She feels her BP may have been r/t anxiety as she had a grandson pass away unexpectedly. Bp elevated this afternoon and BP med restarted. She wants to stay another night and case management ok with this. Will Continue to monitor BP overnight and d/c in the AM. - Review of Systems Constitutional: No Fever, No Chills Eyes: No Symptoms Ears, Nose, & Throat: No Symptoms Respiratory: No Cough, No Short Of Breath Cardiac: No Chest Pain, No Edema, No Syncope Abdominal/Gastrointestinal: No Abdominal Pain, No Nausea, No Vomiting, No Diarrhea Genitourinary Symptoms: No Dysuria Musculoskeletal: No Back Pain, No Neck Pain Skin: No Rash Neurological: No Dizziness, No Focal Weakness, No Sensory Changes Psychological: No Symptoms Endocrine: No Symptoms Hematologic/Lymphatic: No Symptoms Immunological/Allergic: No Symptoms Objective Exam General Appearance: no apparent distress, alert Neurologic Exam: alert, oriented x 3, cooperative, normal mood/affect, nml cerebellar function, sensation nml, No motor deficits Skin Exam: normal color, warm, dry Eye Exam: PERRL, EOMI, eyes nml inspection Ears, Nose, Throat Exam: normal ENT inspection, pharynx normal, moist mucous membranes Neck Exam: normal inspection, non-tender, supple, full range of motion Respiratory Exam: normal breath sounds, lungs clear, No respiratory distress Cardiovascular Exam: regular rate/rhythm, normal heart sounds Gastrointestinal/Abdomen Exam: soft, No tenderness, No mass Extremity Exam: normal inspection, normal range of motion Back Exam: normal inspection, normal range of motion, No CVA tenderness, No vertebral tenderness Pelvic Exam: deferred Rectal Exam: deferred Objective Data Vital Signs: Vital Signs - 24 hr Temp Pulse Resp BP BP BP Pulse Ox 11/05/24 15:49 97.8 F 93 H 16 162/69 97 11/05/24 12:00 97.9 F 83 16 115/61 96 11/05/24 07:28 98.0 F 111 H 16 135/86 96 11/05/24 04:00 97.0 F 71 18 156/75 95 11/04/24 23:29 78 144/70 11/04/24 21:19 97.1 F 71 18 176/88 97 11/04/24 20:04 98 11/04/24 20:01 89 16 170/125 96 11/04/24 19:40 198/114 11/04/24 19:31 84 27 H 246/157 97 11/04/24 19:00 92 H 30 H 192/108 97 11/04/24 18:30 83 19 198/132 95 11/04/24 18:04 95 H 19 239/127 96 11/04/24 18:02 82 21 215/122 99 11/04/24 17:30 32 H 199/112 96 11/04/24 17:22 98 11/04/24 17:01 189/97 11/04/24 16:44 97.9 F 81 16 180/85 98 Pain Assessment - Last Documented Pain Intensity 3 Intake and Output: Intake & Output 11/03/24 11/04/24 11/05/24 11/06/24 11:59 11:59 11:59 11:59 Intake Total 680 480 Balance 680 480 Weight 65.4 kg Lab Results: Lab Results-Last 24 Hours 11/04/24 11/04/24 11/04/24 Range/Units 17:30 17:30 17:30 WBC 7.9 (3.98-10.04) x10^3/uL RBC 3.62 L (3.93-5.22) x10^6/uL Hgb 12.2 (11.2-15.7) g/dL Hct 37.1 (34.1-44.9) % MCV 102.5 H (79.4-94.8) fL MCH 33.7 H (25.6-32.2) pg MCHC 32.9 (32.2-35.5) g/dL RDW 13.4 (11.7-14.4) % Plt Count 372 H (182-369) x10^3/uL MPV 9.4 (9.4-12.3) fL Gran % 57.5 (34.0-71.1) % Immature Gran % (Auto) 0.4 (0.001-0.429) % Nucleat RBC Rel Count 0.0 (0.00-0.2) % Eos # (Auto) 0.18 (0.04-0.36) x10^3/uL Immature Gran # (Auto) 0.03 (0.001-0.031) x10^3u/L Absolute Lymphs (auto) 2.03 (1.18-3.74) x10^3/uL Absolute Monos (auto) 1.01 H (0.24-0.86) x10^3/uL Absolute Nucleated RBC 0.00 (0.00-0.012) x10^3u/L Lymphocytes % 25.7 (19.3-51.7) % Monocytes % 12.8 H (4.7-12.5) % Eosinophils % 2.3 (0.7-5.8) % Basophils % 1.3 H (0.1-1.2) % Absolute Granulocytes 4.56 (1.56-6.13) x10^3/uL Basophils # 0.10 H (0.01-0.08) x10^3/uL Sodium 136 (135-145) mmol/L Potassium 4.6 (3.5-5.1) mmol/L Chloride 101 (98-107) mmol/L Carbon Dioxide 26 (22-30) mmol/L Anion Gap 13.6 (5-15) MEQ/L BUN 25 H (7-17) mg/dL Creatinine 1.40 H (0.52-1.04) mg/dL Estimated GFR 36.9 ML/MIN Glucose 123 H (74-106) mg/dL Calcium 10.0 (8.4-10.2) mg/dL Total Bilirubin 0.40 (0.2-1.3) mg/dL AST 26 (14-36) U/L ALT 18 (0-35) U/L Alkaline Phosphatase 68 (38-126) U/L Troponin I < 0.012 (0.000-0.033) ng/mL NT-Pro-B Natriuret Pep 1000 (<300) pg/mL Serum Total Protein 7.2 (6.3-8.2) g/dL Albumin 4.3 (3.5-5.0) g/dL 11/04/24 11/05/24 11/05/24 Range/Units 21:25 01:00 01:05 WBC 8.0 (3.98-10.04) x10^3/uL RBC 3.42 L (3.93-5.22) x10^6/uL Hgb 11.4 (11.2-15.7) g/dL Hct 35.0 (34.1-44.9) % MCV 102.3 H (79.4-94.8) fL MCH 33.3 H (25.6-32.2) pg MCHC 32.6 (32.2-35.5) g/dL RDW 13.5 (11.7-14.4) % Plt Count 366 (182-369) x10^3/uL MPV 9.7 (9.4-12.3) fL Gran % (34.0-71.1) % Immature Gran % (Auto) (0.001-0.429) % Nucleat RBC Rel Count (0.00-0.2) % Eos # (Auto) (0.04-0.36) x10^3/uL Immature Gran # (Auto) (0.001-0.031) x10^3u/L Absolute Lymphs (auto) (1.18-3.74) x10^3/uL Absolute Monos (auto) (0.24-0.86) x10^3/uL Absolute Nucleated RBC (0.00-0.012) x10^3u/L Lymphocytes % (19.3-51.7) % Monocytes % (4.7-12.5) % Eosinophils % (0.7-5.8) % Basophils % (0.1-1.2) % Absolute Granulocytes (1.56-6.13) x10^3/uL Basophils # (0.01-0.08) x10^3/uL Sodium (135-145) mmol/L Potassium (3.5-5.1) mmol/L Chloride (98-107) mmol/L Carbon Dioxide (22-30) mmol/L Anion Gap (5-15) MEQ/L BUN (7-17) mg/dL Creatinine (0.52-1.04) mg/dL Estimated GFR ML/MIN Glucose (74-106) mg/dL Calcium (8.4-10.2) mg/dL Total Bilirubin (0.2-1.3) mg/dL AST (14-36) U/L ALT (0-35) U/L Alkaline Phosphatase (38-126) U/L Troponin I 0.015 0.014 (0.000-0.033) ng/mL NT-Pro-B Natriuret Pep (<300) pg/mL Serum Total Protein (6.3-8.2) g/dL Albumin (3.5-5.0) g/dL 11/05/24 Range/Units 01:05 WBC (3.98-10.04) x10^3/uL RBC (3.93-5.22) x10^6/uL Hgb (11.2-15.7) g/dL Hct (34.1-44.9) % MCV (79.4-94.8) fL MCH (25.6-32.2) pg MCHC (32.2-35.5) g/dL RDW (11.7-14.4) % Plt Count (182-369) x10^3/uL MPV (9.4-12.3) fL Gran % (34.0-71.1) % Immature Gran % (Auto) (0.001-0.429) % Nucleat RBC Rel Count (0.00-0.2) % Eos # (Auto) (0.04-0.36) x10^3/uL Immature Gran # (Auto) (0.001-0.031) x10^3u/L Absolute Lymphs (auto) (1.18-3.74) x10^3/uL Absolute Monos (auto) (0.24-0.86) x10^3/uL Absolute Nucleated RBC (0.00-0.012) x10^3u/L Lymphocytes % (19.3-51.7) % Monocytes % (4.7-12.5) % Eosinophils % (0.7-5.8) % Basophils % (0.1-1.2) % Absolute Granulocytes (1.56-6.13) x10^3/uL Basophils # (0.01-0.08) x10^3/uL Sodium 136 (135-145) mmol/L Potassium 4.6 (3.5-5.1) mmol/L Chloride 104 (98-107) mmol/L Carbon Dioxide 24 (22-30) mmol/L Anion Gap 12.6 (5-15) MEQ/L BUN 22 H (7-17) mg/dL Creatinine 1.24 H (0.52-1.04) mg/dL Estimated GFR 42.7 ML/MIN Glucose 135 H (74-106) mg/dL Calcium 10.0 (8.4-10.2) mg/dL Total Bilirubin (0.2-1.3) mg/dL AST (14-36) U/L ALT (0-35) U/L Alkaline Phosphatase (38-126) U/L Troponin I (0.000-0.033) ng/mL NT-Pro-B Natriuret Pep (<300) pg/mL Serum Total Protein (6.3-8.2) g/dL Albumin (3.5-5.0) g/dL Radiology Exams: Radiology Procedures Category Date Time Status HEAD WITHOUT CONTRAST [CT] Stat Exams 11/04/24 17:13 Completed MRI BRAIN W/O CONTRAST [MRI] Routine Exams 11/05/24 10:23 Completed Assessment/Plan (1) Dizziness Current Visit: Yes Status: Resolved Code(s): R42 - DIZZINESS AND GIDDINESS (2) Facial paresthesia Current Visit: Yes Status: Resolved Code(s): R20.2 - PARESTHESIA OF SKIN (3) Hypertension Current Visit: Yes Status: Chronic Assessment & Plan: (1) Dizziness Current Visit: Yes Status: Resolved Assessment & Plan: - resolved - CT head negative - MRI negative Code(s): R42 - DIZZINESS AND GIDDINESS (2) Facial paresthesia Current Visit: Yes Status: Resolved Assessment & Plan: - resolved- see above plan of care Code(s): R20.2 - PARESTHESIA OF SKIN (3) Hypertension Current Visit: Yes Status: Chronic Assessment & Plan: - BP stable - Continue home meds Code(s): I10 - ESSENTIAL (PRIMARY) HYPERTENSION Code(s): I10 - ESSENTIAL (PRIMARY) HYPERTENSION (4) Sinus congestion Current Visit: Yes Status: Acute Assessment & Plan: - flonase
[2024-11-05] MEDS: hydroDIURIL 25 MG PO SCH (17:08)
[2024-11-05] MEDS: Zestril 20 MG PO SCH (17:08)
[2024-11-05] MEDS: Glucophage 500 MG PO SCH (17:08)
[2024-11-05] MEDS: Flonase NASAL NS SCH (17:09)
[2024-11-06 07:08] VITALS: BP 142/79; PULSE 77; RESP 16; TEMP 97.1; O2SAT 94
--- NOTE | 2024-11-06 07:30 | PCM.DS ---
Discharge Summary Date of Admission: 11/04/24 20:43 Date of Discharge: 11/05/24 Admitting Physician: TAO RIOS MD Primary Care Provider: LEONA GILLIS Allergies Allergies No Known Drug Allergies Allergy (Verified 11/04/24 17:04) Hospital Summary - Hospital Course Hospital Course: 11/05/24 84 years old very pleasant lady with past medical history significant for diabetes mellitus, hypertension, history of breast and bladder cancer currently in remission who lives with quite independent in her daily life. She came to ER for evaluation of high blood pressure. Patient told me she takes her blood pressure medicine regularly and usually it runs around 130-1 40. Today she felt extreme dizzy with some tingling on left side of the face and when he checked her blood pressure it was running 202/99. She denies having any weakness numbness. No nausea vomiting headache. No other symptoms reported. In the ER initial pressure was 180/85 she was afebrile pulse of 81. As well as blood workup concern all came out unremarkable except hide sugar 372. Troponin 0.01 to NT-proBNP 1000. CT head was completely unremarkable. Teleneurologist evaluated patient advised hospitalization and giving Plavix 300 mg loading dose. She is admitted for MRI and to rule out stroke. Today she reports no sxs. She is up and walking around in the room. BP is at baseline. She states she feels some weakness but walking around the room fine. PT to eval. MRI negative. She feels her BP may have been r/t anxiety as she had a grandson pass away unexpectedly. Bp elevated this afternoon and BP med restarted. She wants to stay another night and case management ok with this. Will Continue to monitor BP overnight and d/c in the AM. 11/06/24 Pt sitting in the chair ready to d/c this AM. BP controlled with medication. Discussed to take her morning meds as prescribed and to f/u with Dr. Gillis. She is feeling much better she states. Discussed to keep a log of BP results and how to take BP at home. Discussed to take reading results to Dr. Gillis to show him readings throughout the day. She denies any further concerns at this time. - Vitals & Intake/Output Vital Signs: Vital Signs Temperature 97.1 F 11/06/24 07:08 Pulse Rate 77 11/06/24 07:08 Respiratory Rate 16 11/06/24 07:08 Blood Pressure 142/79 11/06/24 07:08 O2 Sat by Pulse Oximetry 94 L 11/06/24 07:08 Intake & Output: Intake & Output 11/03/24 11/04/24 11/05/24 11/06/24 11:59 11:59 11:59 11:59 Intake Total 680 1120 Output Total 450 Balance 680 670 Weight 65.4 kg - Lab Result Diagrams: 11/05/24 01:05 11/05/24 01:05 - Radiology Exams Ordered Rad Exams-Entire Visit: Radiology Procedures Category Date Time Status HEAD WITHOUT CONTRAST [CT] Stat Exams 11/04/24 17:13 Completed MRI BRAIN W/O CONTRAST [MRI] Routine Exams 11/05/24 10:23 Completed - Procedures and Test Procedures and Tests throughout Hospitalization: Therapy Orders & Screens 11/05/24 09:43 PT Eval & Treat (MD Order) ONCE Reason for Eval:: weakness Diagnosis: HYPERTENSION, PARETHESIA, DIZZINESS Discharge Exam General Appearance: no apparent distress, alert Neurologic Exam: alert, oriented x 3, cooperative, normal mood/affect, nml cerebellar function, sensation nml, No motor deficits Eye Exam: PERRL, EOMI, eyes nml inspection Ears, Nose, Throat Exam: normal ENT inspection, pharynx normal, moist mucous membranes Neck Exam: normal inspection, non-tender, supple, full range of motion Respiratory Exam: normal breath sounds, lungs clear, No respiratory distress Cardiovascular Exam: regular rate/rhythm, normal heart sounds Gastrointestinal/Abdomen Exam: soft, No tenderness, No mass Pelvic Exam: deferred Rectal Exam: deferred Back Exam: normal inspection, normal range of motion, No CVA tenderness, No vertebral tenderness Extremity Exam: normal inspection, normal range of motion Skin Exam: normal color, warm, dry Final Diagnosis/Problem List - Final Discharge Diagnosis/Problem (1) Dizziness Current Visit: Yes Status: Resolved Code(s): R42 - DIZZINESS AND GIDDINESS (2) Facial paresthesia Current Visit: Yes Status: Resolved Code(s): R20.2 - PARESTHESIA OF SKIN (3) Hypertension Current Visit: Yes Status: Chronic Code(s): I10 - ESSENTIAL (PRIMARY) HYPERTENSION (4) Sinus congestion Current Visit: Yes Status: Acute Assessment & Plan: (1) Dizziness Current Visit: Yes Status: Resolved Assessment & Plan: - resolved - CT head negative - MRI negative Code(s): R42 - DIZZINESS AND GIDDINESS (2) Facial paresthesia Current Visit: Yes Status: Resolved Assessment & Plan: - resolved- see above plan of care Code(s): R20.2 - PARESTHESIA OF SKIN (3) Hypertension Current Visit: Yes Status: Chronic Assessment & Plan: - BP stable - Continue home meds Code(s): I10 - ESSENTIAL (PRIMARY) HYPERTENSION (4) Sinus congestion Current Visit: Yes Status: Acute Assessment & Plan: - flonase - Discharge Discharge Date: 11/06/24 Disposition: Home, Self-Care Condition: Stable Prescriptions: Continue Metformin HCl 500 mg [Glucophage 500 MG] 500 mg PO BIDWM Acetaminophen [Tylenol Arthritis] 2 tab PO DAILY PRN PRN Reason: Pain Anastrozole 1 mg PO DAILY Cholecalciferol (Vitamin D3) [Vitamin D3] 1 tab PO DAILY Lisinopril/Hydrochlorothiazide [Lisinopril-Hctz 20-12.5 mg Tab] 1 each PO DAILY Brimonidine Tartrate 1 drop OP BID Latanoprostene Bunod [Vyzulta] 1 drop OP HS Follow up with: LEONA GILLIS MD [Primary Care Provider] - 11/17/24 3:15 pm
[2024-11-06] MEDS ORDERED: NON-FORMULARY ITEM (Cholecalciferol (Vitamin D3) [Vitamin D3] 250 MCG Tablet) PO SCH (10:00)
[2024-11-06] MEDS ORDERED: NON-FORMULARY ITEM (Lisinopril/Hydrochlorothiazide [Lisinopril-Hctz 20-12.5 Mg Tab] 1 EACH PO SCH (10:00)
== END 2024-11-06 09:06 | disposition home or self-care (01) ==
LOC: ED 15:44 → MED SURG 20:43
PROVIDERS: ADMIT Internal Medicine; ATTEND Internal Medicine
DX: R42 Dizziness and giddiness (principal); R20.2 Paresthesia of skin; R09.81 Nasal congestion; Z80.3 Family history of malignant neoplasm of breast; Z80.52 Family history of malignant neoplasm of bladder; Z79.899 Other long term (current) drug therapy; I12.9 Hypertensive chronic kidney disease with stage 1 through stage 4 chronic kidney disease, or unspecified chronic kidney disease; E11.22 Type 2 diabetes mellitus with diabetic chronic kidney disease; N18.30 Chronic kidney disease, stage 3 unspecified
CPT/HCPCS: 36415; 70450; 70551; 80048; 80053; 83880; 84484; 85025; 85027; 93005; 93041; 94760; 96374; 96375; 97161; 99284; Q3014; G0378; J1650; A9270-GY

== ENCOUNTER 2025-03-03 07:56 | Day surgery (SDC) | payer MEDICARE ==
[2025-03-03] MEDS ORDERED: DEXMEDETOMIDINE 80 MCG/20ML-NS IV ONE (07:57)
[2025-03-03 08:27] VITALS: RESP 18
[2025-03-03] MEDS: Sodium Chloride 0.9% 1000 ML 1,000 ML IV SCH (08:29)
[2025-03-03] MEDS: TETRACAINE 0.5% STERI-UNIT SOL OP ONE ×2 (08:35)
[2025-03-03] MEDS: Ak-Dilate OPHTHALMIC*** 0.71 ML, Cyclogyl 1% OPHTH SOL 0.71 ML, GATIFLOXACIN 0.5% OPHTH... OP SCH (08:36)
[2025-03-03] MEDS: Lactated Ringers 1,000 ML IV SCH (08:37)
[2025-03-03 09:19] LABS: Creatinine 1 1.5 mg/dL (0.52-1.04)
[2025-03-03 09:20] LABS: ANION GAP 13.9 MEQ/L (5-15); Calcium 9.6 mg/dL (8.4-10.2); EST GLOMERULAR FILTRATION RATE 33.9 ML/MIN; Potassium 4.7 mmol/L (3.5-5.1)
[2025-03-03] MEDS ORDERED: TRIAMCINOLONE 15 MG/ML INJ INTRAOP NR (10:00)
[2025-03-03] MEDS ORDERED: DEXMEDETOMIDINE 80 MCG/20ML-NS IV NR ×2 (10:00)
[2025-03-03] MEDS ORDERED: BETADINE 5% OPHTHALMIC 30 ML OP NR (10:00)
[2025-03-03] MEDS ORDERED: VIGAMOX/BSS 0.15% SYR IO NR (10:00)
[2025-03-03] MEDS ORDERED: Epinephrine Preservative Free 1 MG/ML INTRAOP NR (10:00)
[2025-03-03] MEDS ORDERED: Zofran 4 MG/2 ML VIAL IV PRN (10:15)
[2025-03-03] MEDS ORDERED: propofoL IV ONE (10:58)
[2025-03-03] MEDS ORDERED: SUBLIMAZE 100 MCG/2 ML ONE (10:58)
[2025-03-03] MEDS ORDERED: Versed 2 MG/2 ML Injection ONE (10:58)
[2025-03-03] MEDS: ACETAZOLAMIDE 250 MG TABLET PO ONE (11:43)
[2025-03-03 11:50] VITALS: BP 143/93; PULSE 70; TEMP 97; O2SAT 97
== END 2025-03-03 12:07 | disposition home or self-care (01) ==
LOC: SDC 07:56
PROVIDERS: ATTEND Ophthalmology
DX: H25.811 Combined forms of age-related cataract, right eye (principal); I10 Essential (primary) hypertension; E11.9 Type 2 diabetes mellitus without complications
CPT/HCPCS: 36415; 80048; 93005; 99100; C1780; J2250; J2704; J3010; A9270-GY